=== PATIENT | male | born 1965 | race Caucasian/White ===

== ENCOUNTER 2023-02-04 23:59 | Emergency (ER) | payer SELFPAY ==
[~2023-02-04] VITALS: Ht 177.8 cm; Wt 91.0 kg
[2023-02-05 00:11] VITALS: BP 163/99
[2023-02-05] MEDS ORDERED: HYDROCODONE/ACETAMINOPHEN 5/325MG TABLET PO PRN (01:00)
[2023-02-05] MEDS ORDERED: LIDOCAINE HCL/PF 1% 10 MG/ML 5ML VIAL INFIL ONE (01:00)
[2023-02-05] MEDS ORDERED: BACITRACIN ZINC OINT UDPKT TOP ONE (01:00)
[2023-02-05] MEDS ORDERED: TETANUS, DIPHTHERIA, PERTUSSIS VAC/PF 0.5ML (>10YR OLD) IM ONE (01:00)
== END 2023-02-05 01:55 | disposition left against medical advice (07) ==
LOC: ER 23:59
DX: S50.11XA Contusion of right forearm, initial encounter (principal); X58.XXXA Exposure to other specified factors, initial encounter; Y93.89 Activity, other specified; Y92.89 Other specified places as the place of occurrence of the external cause; Y99.8 Other external cause status
CPT/HCPCS: 73090; 90471; 90715; 99283; Z7610